=== PATIENT | male | born 1975 | race Caucasian/White ===

== ENCOUNTER 2016-10-24 22:41 | Emergency (ER) | payer MEDICAID ==
[~2016-10-24] VITALS: Ht 182.9 cm; Wt 121.1 kg
[~2016-10-24 22:41] MED LIST: A/B OTIC15 ML; ATENOLOL100 MG PO; HYDRALAZINE HYD10 M1 PO; LISINOPRIL40 MG PO; SIMVASTATIN10 M1 PO
[2016-10-24 23:43] LABS: BASOPHIL % 0.6 % (0-2); PLATELET COUNT 158 x10^3mcL (130-400); RED CELL DISTRIBUTION WIDTH 13.4 % (11.5-14.5)
[2016-10-25 00:07] LABS: ALBUMIN 3.3 g/dL (3.4-5.0); BILIRUBIN TOTAL 0.3 mg/dL (0.20-1.00); CALCIUM 8.4 mg/dL (8.5-10.1); CARBON DIOXIDE 26.5 mmol/L (21-32); CREATININE SERUM 2.6 mg/dL (0.7-1.3); FREE THYROXINE INDEX 2.1 ug/dL (1.4-4.5); T4(THYROXINE) 5.3 ug/dL (4.7-13.3); TOTAL PROTEIN, SERUM 7.5 g/dL (6.4-8.2)
[2016-10-25 00:35] LABS: UA SPECIFIC GRAVITY 1.015 (1.005-1.035); microscopic required? YES; urine erythrocyte TRACE (NEGATIVE)
[2016-10-25 00:47] LABS: T3 TOTAL 0.9 ng/mL
[2016-10-25 02:04] VITALS: BP 156/91
== END 2016-10-25 02:04 | disposition home or self-care (01) ==
LOC: ED 22:41
PROVIDERS: Specialist
DX: I10 Essential (primary) hypertension (principal); N28.9 Disorder of kidney and ureter, unspecified
CPT/HCPCS: 83880; 84439; J0360; J2405; J3010; J7030; Q0092